=== PATIENT | female | born 1995 | race Caucasian/White ===

== ENCOUNTER 2017-07-27 02:18 | Emergency (ER) | payer OTHER ==
[~2017-07-27] VITALS: Ht 162.6 cm; Wt 54.3 kg
[~2017-07-27 02:18] MED LIST: METR500T PO; SPR28 PO
[2017-07-27 02:22] VITALS: TEMP 36.6; Ht 162.6 cm; Wt 54.3 kg
[2017-07-27] MEDS ORDERED: SODIUM CHLORIDE 0.9% 1000ML 1,000 ML IV ONE (03:00)
[2017-07-27 03:23] LABS: BASO % 0.3 %; BASO ABS # 0.02 K/uL (0-0.2); COMPLETE YES; HEMATOCRIT 38.7 % (37-47); IG% 0.1 %; LYMPH ABS # 3.58 K/uL (1.2-3.4); MEAN CELL VOLUME 90.2 fL (80-100); MEAN CORPUSCULAR HEMOGLOBIN 31.9 pg (25-34); MEAN CORPUSCULAR HGB CONC 35.4 g/dl (32-36); MEAN PLATELET VOLUME 10.3 fL (7.4-10.4); NEUT % 44.6 %; PLATELET COUNT 267 K/uL (130-400); RED BLOOD COUNT 4.29 M/uL (4.2-5.4); WHITE BLOOD COUNT 7.61 K/uL (4.8-10.8)
[2017-07-27 03:28] LABS: POINT OF CARE TROPONIN I < 0.030 ng/ml (0-0.045)
[2017-07-27 03:31] LABS: URINE APPEARANCE CLEAR (CLEAR); URINE BILIRUBIN NEG (NEG); URINE COLOR YELLOW; URINE EPITHELIAL CELL AUTO >30 /lpf (0-5); URINE NITRITE NEG (NEG); URINE SPECIFIC GRAVITY 1.019 (1.000-1.030); UROBILINOGEN NEG (NEG); ZZUR CULT IF INDIC CLEAN CATCH NO
[2017-07-27 03:42] LABS: BUN/CREATININE RATIO 16.9 (10-20); CREATININE 0.88 mg/dl (0.60-1.20); MAGNESIUM 1.8 mg/dl (1.8-2.4); POTASSIUM 3.6 mmol/L (3.5-5.1)
[2017-07-27 03:48] LABS: MANUAL MICROSCOPIC REQUIRED? NO; REVIEW REQ? NO
[2017-07-27 03:53] LABS: THYROID STIMULATING HORMONE 4.94 uIu/ml (0.300-4.500)
[2017-07-27] MEDS ORDERED: SPIR50TA2 PO ×2 (03:59)
[2017-07-27 04:30] LABS: LYME DISEASE AB IGG NEG (NEG)
[2017-07-27 04:50] LABS: LYME DISEASE AB IGM EQUIVOCAL (NEG)
[2017-07-27] MEDS ORDERED: CEFTRIAXONE SOD INJ 1 GM ADDVIAL IV STA (05:02)
[2017-07-27] MEDS ORDERED: DOXY100C PO (05:38)
[2017-07-27 05:50] VITALS: BP 111/65; PULSE 75; O2SAT 99
--- NOTE | 2017-07-27 07:19 | DIAGNOSTIC IMAGING REPORT ---
SINGLE VIEW CHEST CLINICAL HISTORY: Atypical chest pain. FINDINGS: 2 AP, portable, upright chest radiographs are obtained. No prior studies are available for comparison at the time of dictation. The cardiomediastinal silhouette is unremarkable. The lungs and pleural spaces are clear. No pneumothorax is seen. The bony thorax is grossly intact. IMPRESSION: No active disease in the chest. Electronically signed by: Amanuel Salter M.D. 07/27/2017 7:18 AM Dictated Date/Time: 07/27/2017 7:18 AM
--- NOTE | 2017-07-27 22:31 | EMERGENCY ROOM VISIT NOTE ---
History First contact with patient: 02:42 Chief Complaint: CHEST PAIN Stated Complaint: CHEST PAIN,STRUGGLE BREATHING Nursing Triage Summary: pt states she has mid chest pain radiating into abdomen that woke her from sleep. states "I've been feeling a little short of breath for a couple days, and like, nauseaous." pt tearful. pt breathing regularly and independently. History of Present Illness The patient is a 22 year old female who presents to the Emergency Room with complaints of central chest pain radiating into her epigastrium that woke her from sleep tonight. The patient states that she has had some URI symptoms for the past few days with small amounts of shortness of breath and nausea. She does have Zofran and that she will take for chronic nausea, but has not eat regularly this week. She does admit to being under increased stressors as the semester is coming to an end. She does have a recent travel history from here to [facility] over the . The patient considers himself usually healthy and does not take medication on a regular basis. She is on control and denies . She recently started Flagyl for bacterial vaginosis 3 days. No other changes in medication. Review of Systems More than 10 systems were reviewed and otherwise negative with the exception of history of present illness. Past Medical/Surgical History Medical Problems: (1) Mononucleosis syndrome (2) Tonsillectomy planned Family History Patient reports no known family medical history. Social History Smoking Status: Never Smoker Alcohol Use: none Drug Use: none Marital Status: single Housing Status: lives with roommate Occupation Status: [employer] student Current/Historical Medications Scheduled Doxycycline Hyclate (Vibramycin), 100 MG PO BID Ethinyl Estrad/Norgestimate (Sprintec 28), 1 TAB PO DAILY Metronidazole (Flagyl), 500 MG PO BID Spironolactone (Aldactone), 100 MG PO QAM Spironolactone (Aldactone), 50 MG PO HS Physical Exam Vital Signs Date Time Temp Pulse Resp B/P (MAP) Pulse Ox O2 Delivery O2 Flow Rate FiO2 07/27/17 05:50 75 18 111/65 99 07/27/17 05:20 66 18 120/81 100 Room Air 07/27/17 03:21 70 18 117/71 97 Room Air 07/27/17 02:33 91 07/27/17 02:31 Room Air 07/27/17 02:22 36.6 109 24 136/86 100 Room Air Physical Exam VITALS: Vitals are noted on the nurse's note and reviewed by myself. Vital signs stable. GENERAL: Well-developed, well-nourished, white female, who is in no acute distress and resting comfortably. Patient is cooperative with the examination. HEAD: Normocephalic atraumatic. EARS: External ear normal. External auditory canals clear, tympanic membranes pearly davis without erythema or effusion bilaterally. EYES: Pupils equal round and reactive to light and accommodation. Conjunctivae without injection, sclerae without icterus. Extraocular movements intact. NOSE: Patent, turbinates without inflammation or discharge. MOUTH: Mucous membranes moist. Tonsils are not enlarged. Pharynx without erythema, blood, or exudate. Uvula midline. Airway patent. NECK: Supple without nuchal rigidity. No lymphadenopathy. No thyromegaly. Cervical spine is nontender. HEART: Regular rate and rhythm without murmurs gallops or rubs. LUNGS: Clear to auscultation bilaterally without wheezes, rales or rhonchi. No retractions or accessory muscle use. ABDOMEN: Positive normal bowel sounds x 4. Soft, nontender, without masses or organomegaly. No guarding or rebound tenderness. MUSCULOSKELETAL: No muscle atrophy, erythema, or edema noted. Full range of motion without joint tenderness in all extremities. Medical Decision & Procedures ER Provider Diagnostic Interpretation: SINGLE VIEW CHEST CLINICAL HISTORY: Atypical chest pain. FINDINGS: 2 AP, portable, upright chest radiographs are obtained. No prior studies are available for comparison at the time of dictation. The cardiomediastinal silhouette is unremarkable. The lungs and pleural spaces are clear. No pneumothorax is seen. The bony thorax is grossly intact. IMPRESSION: No active disease in the chest. Laboratory Results 07/27/17 03:05 Red Blood Count 4.29, Mean Corpuscular Volume 90.2, Mean Corpuscular Hemoglobin 31.9, Mean Corpuscular Hemoglobin Concent 35.4, Mean Platelet Volume 10.3, Neutrophils (%) (Auto) 44.6, Lymphocytes (%) (Auto) 47.0, Monocytes (%) (Auto) 6.0, Eosinophils (%) (Auto) 2.0, Basophils (%) (Auto) 0.3, Neutrophils # (Auto) 3.39, Lymphocytes # (Auto) 3.58, Monocytes # (Auto) 0.46, Eosinophils # (Auto) 0.15, Basophils # (Auto) 0.02 07/27/17 03:05 Test 07/27/17 03:05 07/27/17 03:08 07/27/17 04:45 White Blood Count 7.61 K/uL (4.8-10.8) Red Blood Count 4.29 M/uL (4.2-5.4) Hemoglobin 13.7 g/dL (12.0-16.0) Hematocrit 38.7 % (37-47) Mean Corpuscular Volume 90.2 fL (80-100) Mean Corpuscular Hemoglobin 31.9 pg (25-34) Mean Corpuscular Hemoglobin Concent 35.4 g/dl (32-36) Platelet Count 267 K/uL (130-400) Mean Platelet Volume 10.3 fL (7.4-10.4) Neutrophils (%) (Auto) 44.6 % Lymphocytes (%) (Auto) 47.0 % Monocytes (%) (Auto) 6.0 % Eosinophils (%) (Auto) 2.0 % Basophils (%) (Auto) 0.3 % Neutrophils # (Auto) 3.39 K/uL (1.4-6.5) Lymphocytes # (Auto) 3.58 K/uL (1.2-3.4) Monocytes # (Auto) 0.46 K/uL (0.11-0.59) Eosinophils # (Auto) 0.15 K/uL (0-0.5) Basophils # (Auto) 0.02 K/uL (0-0.2) RDW Standard Deviation 38.0 fL (36.4-46.3) RDW Coefficient of Variation 11.7 % (11.5-14.5) Immature Granulocyte % (Auto) 0.1 % Immature Granulocyte # (Auto) 0.01 K/uL (0.00-0.02) Urine Color YELLOW Urine Appearance CLEAR (CLEAR) Urine pH 5.0 (4.5-7.5) Urine Specific Wilmar 1.019 (1.000-1.030) Urine Protein NEG (NEG) Urine Glucose (UA) NEG (NEG) Urine Ketones TRACE (NEG) Urine Occult Blood NEG (NEG) Urine Nitrite NEG (NEG) Urine Bilirubin NEG (NEG) Urine Urobilinogen NEG (NEG) Urine Leukocyte Esterase SMALL (NEG) Urine WBC (Auto) 1-5 /hpf (0-5) Urine RBC (Auto) 0-4 /hpf (0-4) Urine Hyaline Casts (Auto) 1-5 /lpf (0-5) Urine Epithelial Cells (Auto) >30 /lpf (0-5) Urine Bacteria (Auto) NEG (NEG) Urine Test NEG (NEG) Anion Gap 6.0 mmol/L (3-11) Est Creatinine Clear Calc Drug Dose 86.7 ml/min Estimated GFR () 108.9 Estimated GFR (Non- 93.9 BUN/Creatinine Ratio 16.9 (10-20) Calcium Level 9.0 mg/dl (8.5-10.1) Magnesium Level 1.8 mg/dl (1.8-2.4) Total Bilirubin 0.3 mg/dl (0.2-1) Aspartate Amino Transf (AST/SGOT) 12 U/L (15-37) Alanine Aminotransferase (ALT/SGPT) 18 U/L (12-78) Alkaline Phosphatase 59 U/L (45-117) Total Protein 7.4 gm/dl (6.4-8.2) Albumin 3.7 gm/dl (3.4-5.0) Globulin 3.7 gm/dl (2.5-4.0) Albumin/Globulin Ratio 1.0 (0.9-2) Lipase 127 U/L (73-393) Thyroid Stimulating Hormone (TSH) 4.940 uIu/ml (0.300-4.500) Lyme Disease IgG Antibody NEG (NEG) Bedside D-Dimer 172 ng/mlFEU (0-450) Bedside Troponin I < 0.030 ng/ml (0-0.045) Medications Administered Medications (Trade) Dose Ordered Sig/Aundrea Route Start Time Stop Time Status Last Admin Dose Admin Sodium Chloride 1,000 ml @ 999 mls/hr Q1H1M ONCE IV 07/27/17 03:00 07/27/17 04:00 DC 07/27/17 03:21 999 MLS/HR Ceftriaxone Sodium (Rocephin Inj) 1 gm NOW STAT IV 07/27/17 05:02 07/27/17 05:03 DC 07/27/17 05:18 1 GM ECG Change: Normal sinus rhythm with sinus arrhythmia @90bpm Possible Left atrial enlargement Cannot rule out Anterior infarct , age undetermined Abnormal ECG No previous ECGs available Confirmed by ROSEANNE CASTILLO ([id number]) on 07/27/2017 2:58:44 PM Normal sinus rhythm with sinus arrhythmia@62bpm Low voltage QRS Borderline ECG When compared with ECG of 27-JUL-2017 02:29, No significant change was found Confirmed by ROSEANNE CASTILLO ([id number]) on 07/27/2017 3:01:02 PM ED Course Physical exam and history were performed. Nursing notes, EMR, and Medication List were personally reviewed. Patient appears to have chest pain that appears atypical bring her to the emergency department this evening. EKG was performed and was normal sinus rhythm at 90 beats minute as above. IV access was established and labs were obtained. Patient was hydrated with normal saline. Chest x-ray was performed. The patient's blood work is as above and was reviewed. She does not have a significantly elevated white blood cell count, gross anemia, bandemia, or significant electrolyte imbalance. Troponin 2 is negative. D-dimer 1 is negative. Chest x-ray is without acute findings. She rated normal sinus rhythm on the colorist photography. Her Lyme disease testing is equivocal, and this certainly could be protruding to her symptoms. She was given IV Rocephin here in the department. Overall the patient appears well on reevaluation. She did not have any worsening of her symptoms. I did elect to perform a repeat EKG that is as above , and was normal sinus rhythm at 65 bpm. The patient was discussed with my attending, and we do feel that she is stable for discharge home. I will give her a course of doxycycline to treat for possible Lyme disease. The patient should otherwise follow with her [facility] physician/[facility] for further care and management. Her discomfort could be related to esophageal irritation while taking Flagyl, or possibly stress-induced at the end of the semester. The patient understands she is welcome to return to the ER anytime, and she rated her discomfort a 0/10 at the time of departure. The chart was completed utilizing [employer] Speech Voice Recognition Software. Grammatical errors, random word insertions, pronoun errors, and incomplete sentences are an occasional consequence of this system due to software limitations, ambient noise, and hardware issues. Any formal questions or concerns about the content, text, or information contained within the body of this dictation should be directly addressed to the provider for clarification. . Medical Decision Differential diagnosis includes, but is not limited to: Myocardial infarction, dysrhythmia, pericarditis, pneumothorax, aortic aneurysm/dissection, DVT/PE, anxiety, GERD, PUD, electrolyte imbalance, thyroid disorder, pneumonia, bronchitis, pancreatitis, and others Impression Primary Impression: Central chest pain Additional Impression: Borderline Lyme serology Departure Information Dispostion Home / Self-Care Condition GOOD Prescriptions Doxycycline Hyclate (VIBRAMYCIN) 100 Mg Cap 100 MG PO BID for 21 Days, #42 CAP Prov: Sigifredo Earl PA-C 07/27/17 Forms HOME CARE DOCUMENTATION FORM, IMPORTANT VISIT INFORMATION Patient Instructions My [facility] Additional Instructions You were seen and evaluated today on an emergency basis only. This is not a substitute for, or an effort to provide, complete comprehensive medical care. It is not possible to recognize and treat all injuries or illnesses in a single emergency department visit. For this reason it is recommended that you followup with your primary care physician or [facility] with any ongoing or persistent symptoms. Doxycycline twice a day for 21 days. Avoid exposure to the sun/UV light while on this medication or use frequent application of SPF 50 or higher due to increased sensitivity to UV rays and high risk for severe sarabia. TAKE THIS WITH A MEAL TO PREVENT UPSET STOMACH. You are welcome to return to the emergency department anytime with new, worsening, or concerning symptoms. Problem Qualifiers
== END 2017-07-27 05:50 | disposition home or self-care (01) ==
LOC: C.EDB 02:19 → C.EDA 05:50
DX: R07.9 Chest pain, unspecified (principal); R06.02 Shortness of breath